=== PATIENT | female | born 1935 | race Two or more races ===

== ENCOUNTER 2021-11-07 09:13 | Emergency (ER) | payer OTHER ==
[~2021-11-07] VITALS: Ht 152.4 cm; Wt 63.5 kg
[~2021-11-07 09:13] MED LIST: GLIMEPIRIDE4 MG; METFORMIN HCL500 MG
[2021-11-07] MEDS ORDERED: COZAAR100 MG PO (09:23)
== END 2021-11-07 18:10 | disposition home or self-care (01) ==
LOC: ER 09:13
DX: K52.9 Noninfective gastroenteritis and colitis, unspecified (principal); E11.9 Type 2 diabetes mellitus without complications; Z79.84 Long term (current) use of oral hypoglycemic drugs; I10 Essential (primary) hypertension

== ENCOUNTER 2024-09-16 13:55 | Emergency (ER) | payer OTHER ==
[~2024-09-16] VITALS: Ht 157.5 cm; Wt 49.9 kg
[~2024-09-16 13:55] MED LIST changes: +COZAAR100 MG PO
[2024-09-16 15:49] VITALS: BP 150/82; O2SAT 99
[2024-09-16] MEDS ORDERED: NEURONTIN300 MG (15:49)
[2024-09-16] MEDS ORDERED: METFORMIN HCL1000 M2 (15:49)
[2024-09-16] MEDS ORDERED: FAMOTIDINE/PF 20 MG/2 ML VIAL IV ONE (17:00)
[2024-09-16 17:36] LABS: BASO % 0.3 % (0.1-1.2); EOS # 0.07 (0.04-0.54); EOS % 1.0 % (0.7-7.0); LYMPH # 3.64 (1.18-3.74); LYMPH % 53.4 % (19.3-53.1); MEAN PLATELET VOLUME 8.60 fl (9.4-12.4); MONO # 0.42 (0.24-0.82); MONO % 6.2 % (4.7-12.5); NEUT # 2.62 (1.56-6.13); NEUT % 38.4 % (34.0-71.1); RED CELL DISTRIBUTION WIDTH 13.4 % (11.6-14.4)
[2024-09-16 18:00] LABS: ALT/SGPT 23.0 U/L (12-78); AST/SGOT 11.0 U/L (15-37); BILIRUBIN TOTAL 0.36 mg/dL (0.3-1.2); BUN CREA RATIO 29.0 (7.0-25.0); CREATININE SERUM 0.7 mg/dL (0.55-1.02); GFR 78.79; GLOBULINA 3.2 G/DL (2.4-3.5); OSMOLALITY SERUM 284.0 MOSM/KG (275-295)
[2024-09-16 18:05] LABS: GLUCOSE FASTING 229.0 mg/dL (65-100)
[2024-09-16] MEDS ORDERED: PEPCID AC20 MG PO (19:40)
== END 2024-09-16 20:57 ==
LOC: ER 13:55
PROVIDERS: General Practice
DX: R12 Heartburn (principal); R53.1 Weakness; R53.81 Other malaise; E11.9 Type 2 diabetes mellitus without complications; Z79.84 Long term (current) use of oral hypoglycemic drugs; I10 Essential (primary) hypertension